=== PATIENT | female | born 1995 | race Caucasian/White ===

== ENCOUNTER → 2016-10-22 | Outpatient (CLI) | payer OTHER ==
--- NOTE | 2016-10-22 11:17 | DI ---
GALLBLADDER AND LIVER ULTRASOUND, 10/22/2016 8:48 AM: Clinical History: Generalized abdominal pain. Previous Exam: None at this facility. Technique: Scans are performed through the right upper quadrant in multiple projections. The patient was rolled vigorously from side to side, and the gallbladder was balloted with the probe to facilitat e visualization of small potential gallstones. The gallbladder is only moderately distended and has a normal wall thickness. There are no gallstones . The common bile duct measures 2 mm. The pancreas is visualized from the head to the body and is nor mal. The visualized portions of the liver, right kidney, and IVC are normal. The aorta is normal. Readin. Normal gallbladder ultrasound. 2. The liver, right kidney, pancreas, IVC, and aorta are normal.
== END ==
LOC: US 08:44
PROVIDERS: ATTEND Family Medicine
DX: R10.84 Generalized abdominal pain (principal)
CPT/HCPCS: 76705